=== PATIENT | female | born 1990 ===

== ENCOUNTER 2018-05-02 08:56 | Emergency (ER) | payer OTHER ==
[2018-05-02] MEDS ORDERED: Sodium Chloride 0.9% 1,000 ML IV STA (09:52)
[2018-05-02] MEDS ORDERED: Sodium Chloride 0.9% 1,000 ML ONE (10:22)
[2018-05-02 10:45] LABS: BASO # 0.1 K/uL (0.0-0.2); BASO % 0.8 % (0.0-2.0); EOS # 0.1 K/uL (0.0-0.7); EOS % 1.2 % (0.0-4.0); HEMOGLOBIN 14.5 g/dL (11.0-16.0); LYMPH # 1.8 K/uL (1.0-4.3); LYMPH % 20.8 % (20.0-40.0); MEAN CELL VOLUME 91.4 fL (81.0-99.0); MEAN CORPUSCULAR HEMOGLOBIN 31.1 pg (27.0-31.0); MEAN PLATELET VOLUME 9.1 fL (7.2-11.7); MONO # 0.5 K/uL (0.0-0.8); MONO % 5.7 % (0.0-10.0); NEUT # 6.2 K/uL (1.8-7.0); NEUT % 71.5 % (50.0-75.0); RBC 4.66 Mil/uL (3.80-5.20); RED CELL DISTRIBUTION WIDTH 12.6 % (11.5-14.5); WHITE BLOOD COUNT 8.7 K/uL (4.8-10.8)
[2018-05-02 10:54] LABS: HCG,QUALITATIVE URINE NEGATIVE (NEGATIVE)
[2018-05-02 10:59] LABS: SQUAMOUS EPITHIAL 9 /hpf (0-5); URINE BACTERIA RARE (<OCC)
[2018-05-02 11:00] LABS: URINE BILIRUBIN NEGATIVE (NEGATIVE); URINE BLOOD NEGATIVE (NEGATIVE); URINE CLARITY Clear (Clear); URINE COLOR Yellow (YELLOW); URINE GLUCOSE (UA) NORMAL (Normal); URINE LEUKOCYTE ESTERASE 1+ Leu/uL (Negative); URINE PROTEIN NEGATIVE (NEGATIVE); URINE UROBILINOGEN NORMAL mg/dL (0.2-1.0)
[2018-05-02 11:09] LABS: BLOOD UREA NITROGEN 12 mg/dL (7-17); CALCIUM 9.2 mg/dl (8.6-10.4); GFR NON-AFRICAN AMERICAN > 60; LIPASE 53 U/L (23-300)
[2018-05-02 11:11] LABS: ALB/GLOB RATIO 1.3 (1.0-2.1); ALBUMIN 4.1 g/dL (3.5-5.0); ALT/SGPT 11 U/L (9-52); AST/SGOT 37 U/L (14-36)
--- NOTE | 2018-05-02 11:51 | C.PDOC ---
History Of Present Illness 27 y/o female presents to the ER complaining of nausea and dizziness which began patient woke up in the morning. Patient states that she started driving and she continued to have the symptoms. Patient reports that she usually has regular periods and her LMP was on 03/26/18.Denies having fever,chills, CP, SOB, vomiting, abdominal pain. Time Seen by Provider: 05/02/18 09:09 Chief Complaint (Nursing): GI Problem History Per: Patient History/Exam Limitations: no limitations Onset/Duration Of Symptoms: Days Current Symptoms Are (Timing): Still Present Severity: Moderate Past Medical History Reviewed: Historical Data, Nursing Documentation, Vital Signs Vital Signs: Last Vital Signs Temp 98.5 F 05/02/18 09:09 Pulse 83 05/02/18 09:09 Resp 16 05/02/18 09:09 BP 133/85 05/02/18 09:09 Pulse Ox 99 05/02/18 09:09 - Medical History PMH: No Chronic Diseases Other Surgeries: Hx of surgeries Family History: States: No Known Family Hx - Social History Hx Alcohol Use: Yes Hx Substance Use: No - Immunization History Hx Tetanus Toxoid Vaccination: No Hx Influenza Vaccination: No Hx Pneumococcal Vaccination: No Review Of Systems Except As Marked, All Systems Reviewed And Found Negative. Constitutional: Negative for: Fever, Chills Cardiovascular: Negative for: Chest Pain Respiratory: Negative for: Shortness of Breath Gastrointestinal: Positive for: Nausea. Negative for: Vomiting, Abdominal Pain Neurological: Positive for: Dizziness. Negative for: Headache Physical Exam - Physical Exam Appears: Non-toxic, No Acute Distress Skin: Normal Color, Warm, Dry Head: Atraumatic, Normacephalic Eye(s): bilateral: Normal Inspection Nose: Normal Oral Mucosa: Moist Neck: Supple Chest: Symmetrical Cardiovascular: Rhythm Regular Respiratory: Normal Breath Sounds, No Rales, No Rhonchi, No Wheezing Gastrointestinal/Abdominal: Normal Exam, Soft, No Tenderness, No Guarding, No Rebound Neurological/Psych: Oriented x3, Normal Speech ED Course And Treatment - Laboratory Results Result Diagrams: 05/02/18 10:40 05/02/18 10:40 Lab Results: Total Bilirubin 0.8 mg/dL (0.2-1.3) 05/02/18 10:40 AST 37 U/L (14-36) H 05/02/18 10:40 ALT 11 U/L (9-52) 05/02/18 10:40 Alkaline Phosphatase 44 U/L (38-126) 05/02/18 10:40 Total Protein 7.3 g/dL (6.3-8.3) 05/02/18 10:40 Albumin 4.1 g/dL (3.5-5.0) 05/02/18 10:40 Globulin 3.2 gm/dL (2.2-3.9) 05/02/18 10:40 Albumin/Globulin Ratio 1.3 (1.0-2.1) 05/02/18 10:40 Lipase 53 U/L (23-300) 05/02/18 10:40 Urine Color Yellow (YELLOW) 05/02/18 10:40 Urine Clarity Clear (Clear) 05/02/18 10:40 Urine pH 7.0 (5.0-8.0) 05/02/18 10:40 Ur Specific [place] 1.018 (1.003-1.030) 05/02/18 10:40 Urine Protein Negative mg/dL (NEGATIVE) 05/02/18 10:40 Urine Glucose (UA) Normal mg/dL (Normal) 05/02/18 10:40 Urine Ketones Negative mg/dL (NEGATIVE) 05/02/18 10:40 Urine Blood Negative (NEGATIVE) 05/02/18 10:40 Urine Nitrate Negative (NEGATIVE) 05/02/18 10:40 Urine Bilirubin Negative (NEGATIVE) 05/02/18 10:40 Urine Urobilinogen Normal mg/dL (0.2-1.0) 05/02/18 10:40 Ur Leukocyte Esterase 1+ Lisset/uL (Negative) H 05/02/18 10:40 Urine WBC (Auto) 8 /hpf (0-5) H 05/02/18 10:40 Urine RBC (Auto) 3 /hpf (0-3) 05/02/18 10:40 Ur Squamous Epith Cells 9 /hpf (0-5) H 05/02/18 10:40 Urine Bacteria Rare (<OCC) 05/02/18 10:40 Urine HCG, Qual Negative (NEGATIVE) 05/02/18 10:40 Urine HCG, Qual Negative (NEGATIVE) 05/02/18 10:40 O2 Sat by Pulse Oximetry: 99 (RA) Pulse Ox Interpretation: Normal Progress Note: Labs, UA, and HCG-Qual. ordered.Patient treated with IV Fluids and Zofran IV. On re-eval she feels better, asymptomatic now, stable to be d/c home. Disposition - Disposition Disposition: HOME/ ROUTINE Disposition Time: 14:01 Condition: IMPROVED Additional Instructions: Follow up with your PMD within 1-2 days. Return to ED if feel worse. Instructions: Nausea and Vomiting, Adult (DC), Dizziness, Nonvertigo, (DC) Forms: [employer] ([place]), Work Excuse - Clinical Impression Clinical Impression: Dizziness, Nausea - PA / SOCIAL WORK MANAGER / Resident Statement MD/DO has reviewed & agrees with the documentation as recorded. - Scribe Statement The provider has reviewed the documentation as recorded by the Savana Green Provider Attestation All medical record entries made by the Savana were at my direction and personally dictated by me. I have reviewed the chart and agree that the record accurately reflects my personal performance of the history, physical exam, medical decision making, and the department course for this patient. I have also personally directed, reviewed, and agree with the discharge instructions and disposition.
[2018-05-02 13:51] VITALS: BP 117/77; PULSE 90; RESP 18; TEMP 98.3
[2018-05-02 14:02] VITALS: O2SAT 99
== END 2018-05-02 14:07 | disposition home or self-care (01) ==
LOC: C.ER 08:56
DX: R42 Dizziness and giddiness (principal); R11.0 Nausea
CPT/HCPCS: 80053; 81001; 83690; 84703; 85025; 96361; 96374; 99284; J2405; J7030